=== PATIENT | female | born 1965 | race African-American/Black ===

== ENCOUNTER → 2025-04-30 | Outpatient (REF) ==
[2025-05-01 13:58] LABS: HERPES ZOSTER, VARICELLA IgG 12.40 S/CO (>=1.00); RUBEOLA IgG ANTIBODY > 300.00 AU/mL (>16.49)
== END ==
LOC: M LAB 09:12
PROVIDERS: ATTEND Family Medicine
DX: Z02.1 Encounter for pre-employment examination (principal)

== ENCOUNTER → 2025-05-02 | Outpatient (REF) | LOC: M RAD 14:28 | PROVIDERS: ATTEND Family Medicine | DX: Z01.89 Encounter for other specified special examinations (principal) ==